=== PATIENT | male | born 1995 | race African-American/Black ===

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

== ENCOUNTER 2017-05-09 18:14 | Emergency (ER) | payer OTHER ==
[2017-05-09 18:26] VITALS: BP 125/51
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
[2017-05-09] MEDS ORDERED: AZITHROMYCIN 250 MG TABLET PO ONE (20:22)
[2017-05-09] MEDS ORDERED: CEFTRIAXONE INJ 250 MG VIAL IM ONE (20:22)
[2017-05-09] MEDS ORDERED: LIDOCAINE 1% INJ-PF (10 MG/ML) 30 ML SDV INFIL ONE (20:22)
== END 2017-05-09 20:51 | disposition home or self-care (01) ==
LOC: ER 18:14
DX: R36.9 Urethral discharge, unspecified (principal); F17.210 Nicotine dependence, cigarettes, uncomplicated
CPT/HCPCS: 99283; 96372; 87491; 87591; J3490; J0696

== ENCOUNTER 2017-05-13 15:39 | Emergency (ER) | payer OTHER ==
[2017-05-13] MEDS ORDERED: ACETAMINOPHEN 325 MG TABLET PO ONE (15:53)
--- NOTE | 2017-05-13 15:55 | ER Document Report ---
ED Medical Screen (RME) - General Chief Complaint: Abdominal Pain Stated Complaint: LOWER ABDOMEN PAIN Time Seen by Provider: 05/13/17 15:47 Notes: This 22-year-old male patient comes emergency room complaining of left groin pain and swelling for the past 5 days. He was seen here on 05/09/2017 with complaint of greenish yellow penile discharge. Testing for GC and chlamydia was negative. He did receive Rocephin and Zithromax. He noted later that day after that visit, the painful swelling to the left groin. He denies any injury, any cuts or scratches boils infected hair follicles etc. on the left lower extremity. He is running a fever today of 102.2 Brief exam shows this to be an enlarged tender left inguinal lymph node. I have greeted and performed a rapid initial assessment of this patient. A comprehensive ED assessment and evaluation of the patient, analysis of test results and completion of the medical decision making process will be conducted by additional ED providers. TRAVEL OUTSIDE OF THE [place] IN LAST 30 DAYS: No - Related Data Allergies/Adverse Reactions: No Known Allergies Allergy (Verified 05/13/17 15:45) Past Medical History Renal/ Medical History: Denies: Hx Peritoneal Dialysis Past Surgical History: Reports: Hx Oral Surgery Physical Exam - Vital signs Vitals: Temp Pulse Resp BP Pulse Ox 102.2 F H 98 18 154/72 H 100 05/13/17 15:43 05/13/17 15:43 05/13/17 15:43 05/13/17 15:43 05/13/17 15:43 Course - Vital Signs Vital signs: Temp Pulse Resp BP Pulse Ox 102.2 F H 98 18 154/72 H 100 05/13/17 15:43 05/13/17 15:43 05/13/17 15:43 05/13/17 15:43 05/13/17 15:43
[2017-05-13 16:20] LABS: ABSOLUTE EOSINOPHILS # (AUTO) 0.1 10^3/uL (0.0-0.6); ABSOLUTE LYMPHOCYTES (AUTO) 0.9 10^3/uL (0.5-4.7); ABSOLUTE MONOCYTES (AUTO) 0.8 10^3/uL (0.1-1.4); ABSOLUTE NEUT (AUTO) 3.8 10^3/uL (1.7-8.2); BASOPHILS % (AUTO) 0.3 % (0-2); EOSINOPHILS % (AUTO) 1.2 % (0-6); HEMATOCRIT 44.5 % (37.9-51.0); HEMOGLOBIN 15.5 g/dL (13.5-17.0); LYMPHOCYTES % (AUTO) 15.8 % (13-45); MEAN CORPUSCULAR HEMOGLOBIN 28.7 pg (27.0-33.4); MEAN CORPUSCULAR HGB CONC 34.8 g/dL (32.0-36.0); MEAN CORPUSCULAR VOLUME 83 fl (80-97); MONOCYTES % (AUTO) 14.6 % (3-13); RED CELL DISTRIBUTION WIDTH 12.6 % (11.5-14.0); SEGMENTED NEUTROPHILS % (AUTO) 68.1 % (42-78); WHITE BLOOD COUNT 5.6 10^3/uL (4.0-10.5)
--- NOTE | 2017-05-13 16:22 | ER Document Report ---
ED GI/ - General Chief Complaint: Abdominal Pain Stated Complaint: LOWER ABDOMEN PAIN Time Seen by Provider: 05/13/17 15:47 Notes: The patient is a 22-year-old male who presents with few days of left groin swelling. He was seen in the ER earlier this week for penile discharge and was treated with azithromycin and Rocephin, but his gonorrhea and chlamydia results were negative. Patient is now also having a fever. He denies penile discharge , testicular pain, concern for STDs, rash, nausea, vomiting, abdominal pain, sore throat, dysuria, hematuria or flank pain. TRAVEL OUTSIDE OF THE [place] IN LAST 30 DAYS: No - Related Data Allergies/Adverse Reactions: No Known Allergies Allergy (Verified 05/13/17 15:45) Past Medical History - General Information source: Patient - Social History Smoking Status: Current Every Day Smoker Chew tobacco use (# tins/day): No Frequency of alcohol use: None Drug Abuse: None Family History: None Renal/ Medical History: Denies: Hx Peritoneal Dialysis Past Surgical History: Reports: Hx Oral Surgery Review of Systems - Review of Systems Notes: REVIEW OF SYSTEMS: CONSTITUTIONAL: +fevers, -chills EENT: -eye pain, -difficulty swallowing, -nasal congestion CARDIOVASCULAR:-chest pain, -syncope. RESPIRATORY: -cough, -SOB GASTROINTESTINAL: -abdominal pain, - nausea, -vomiting, -diarrhea GENITOURINARY: -dysuria, -hematuria MUSCULOSKELETAL: -back pain, -neck pain SKIN: -rash or skin lesions. HEMATOLOGIC: -easy bruising or bleeding. LYMPHATIC: +left inguinal lymph node NEUROLOGICAL: -altered mental status or loss of consciousness, -headache, - neurologic symptoms PSYCHIATRIC: -anxiety, -depression. ALL OTHER SYSTEMS REVIEWED AND NEGATIVE. Physical Exam - Vital signs Vitals: Temp Pulse Resp BP Pulse Ox 102.2 F H 98 18 154/72 H 100 05/13/17 15:43 05/13/17 15:43 05/13/17 15:43 05/13/17 15:43 05/13/17 15:43 - Notes Notes: PHYSICAL EXAMINATION: GENERAL: Well-appearing, well-nourished and in no acute distress. HEAD: Atraumatic, normocephalic. EYES: Pupils equal round and reactive to light, extraocular movements intact, sclera anicteric, conjunctiva are normal. ENT: nares patent, oropharynx clear without exudates. Moist mucous membranes. NECK: Normal range of motion, supple without lymphadenopathy LUNGS: Breath sounds clear to auscultation bilaterally and equal. No wheezes rales or rhonchi. HEART: Regular rate and rhythm without murmurs ABDOMEN/: Soft, nontender, normoactive bowel sounds. No guarding, no rebound. 1 cm tender single lymph node in left inguinal region. No hernia noted. Normal penis and testicles. EXTREMITIES: Normal range of motion, no pitting or edema. No cyanosis. No left leg rash or injury. NEUROLOGICAL: Cranial nerves grossly intact. Normal speech, normal gait. Normal sensory and motor exams. PSYCH: Normal mood, normal affect. SKIN: Warm, Dry, normal turgor, no rashes or lesions noted. Course - Re-evaluation Re-evalutation: Patient appears very well. He has a single left inguinal lymph node and a fever. No concern for STDs and does not appear to be LGV at this time. His white count is normal the rest of blood work is normal. His gonorrhea and chlamydia is negative from earlier this week. Will discharge patient home with return precautions. - Vital Signs Vital signs: Temp Pulse Resp BP Pulse Ox 102.2 F H 98 18 154/72 H 100 05/13/17 15:43 05/13/17 15:43 05/13/17 15:43 05/13/17 15:43 05/13/17 15:43 - Laboratory Result Diagrams: 05/13/17 16:00 05/13/17 16:00 Laboratory results interpreted by me: 05/13/17 05/13/17 16:00 17:17 Monocytes % 14.6 H Urine Urobilinogen 2.0 H Urine Ascorbic Acid 40 H Discharge - Discharge Clinical Impression: Lymphadenopathy Fever Qualifiers: Fever type: unspecified Qualified Code(s): R50.9 - Fever, unspecified Condition: Stable Disposition: HOME, SELF-CARE Additional Instructions: Lymphadenopathy You have enlargement of lymph glands, called lymphadenopathy. Lymph glands filter tissue fluids. They help to fight infection. Most of the time, enlarged lymph glands are not serious. Lymph glands may react to a viral or bacterial infection by becoming swollen and painful. When the infection goes away, the glands shrink. Sometimes a lymph gland will remain enlarged for a long time after an infection. Occasionally, a lymph gland may be overwhelmed by infection and form an abscess. If an enlarged lymph gland has signs that are suspicious for tumor, the doctor will recommend a biopsy. A suspicious gland usually is NOT painful, grows very slowly, and is rock-hard to touch. See the doctor or return if there is increasing swelling and redness, high fever, difficulty breathing, or any other change for the worse. Forms: Elevated Blood Pressure
[2017-05-13 16:37] LABS: ALANINE AMINOTRANSFERASE 47 U/L (21-72); ALBUMIN 4.7 g/dL (3.5-5.0); ALKALINE PHOSPHATASE 79 U/L (38-126); ANION GAP 13 (5-19); ASPARTATE AMINO TRANSFERASE 28 U/L (17-59); BILIRUBIN,DIRECT 0.4 mg/dL (0.0-0.4); BILIRUBIN,TOTAL 0.7 mg/dL (0.2-1.3); BLOOD UREA NITROGEN 16 mg/dL (7-20); CALCIUM 9.8 mg/dL (8.4-10.2); CARBON DIOXIDE 25 mmol/L (22-30); CHLORIDE 106 mmol/L (98-107); CREATININE RESULT 1.18 mg/dL (0.52-1.25); GLUCOSE 80 mg/dL (75-110); POTASSIUM 4.6 mmol/L (3.6-5.0); SODIUM 144.2 mmol/L (137-145); TOTAL PROTEIN 7.9 g/dL (6.3-8.2)
[2017-05-13 17:29] LABS: APPEARANCE,URINE CLEAR; BILIRUBIN,URINE NEGATIVE (NEGATIVE); GLUCOSE, URINE NEGATIVE (NEGATIVE); KETONES,URINE NEGATIVE (NEGATIVE); LEUKOCYTE ESTERASE,URINE NEGATIVE (NEGATIVE); NITRITE,URINE NEGATIVE (NEGATIVE); PROTEIN,URINE NEGATIVE (NEGATIVE); URINE SPECIFIC GRAVITY 1.029
[2017-05-13 18:28] VITALS: BP 122/53
== END 2017-05-13 18:28 | disposition home or self-care (01) ==
LOC: ER 15:39
DX: R59.1 Generalized enlarged lymph nodes (principal); R50.9 Fever, unspecified; R10.9 Unspecified abdominal pain; R10.30 Lower abdominal pain, unspecified; F17.200 Nicotine dependence, unspecified, uncomplicated
CPT/HCPCS: 36415; 80053; 81001; 85025; 87040; 99284

== ENCOUNTER 2019-09-24 18:00 | Emergency (ER) | payer OTHER ==
[2019-09-24] MEDS ORDERED: NORMAL SALINE 1000 ML 1,000 ML IV ONE (19:28)
[2019-09-24] MEDS ORDERED: DEXAMETHASONE SOD PHOS INJ 10 MG/1 ML VIAL IV ONE (19:29)
[2019-09-24] MEDS ORDERED: KETOROLAC TROMETHAMINE INJ/PF 30 MG/1 ML SDV IV ONE (19:29)
[2019-09-24] MEDS ORDERED: CLINDAMYCIN 900 MG/D5W RTU 900 MG/50 ML RTUPB IV SCH ×2 (19:30→20:30)
--- NOTE | 2019-09-24 19:32 | ER Document Report ---
ED Medical Screen (RME) - General Chief Complaint: Sore Throat Stated Complaint: SORE THROAT Time Seen by Provider: 09/24/19 19:22 Primary Care Provider: BIBI HASSAN DO [Primary Care Provider] - Follow up as needed Notes: HPI: 24-year-old male presenting to the emergency department for evaluation of 5 days of progressively worsening left-sided throat pain. Subjective fevers. Increasing difficulty with swallowing. Pain is only on the left side. I have greeted and performed a rapid initial assessment of this patient. A comprehensive ED assessment and evaluation of the patient, analysis of test results and completion of the medical decision making process will be conducted by additional ED providers PHYSICAL EXAMINATION: GENERAL: Well-appearing, well-nourished and in moderate acute distress. HEAD: Atraumatic, normocephalic. EYES: sclera anicteric, conjunctiva are normal. ENT: Moist mucous membranes. Moderate left soft palate edema is noted NECK: Normal range of motion, positive left anterior cervical adenopathy LUNGS: Normal work of breathing, clear to auscultation HEART: 2+ radial pulses bilaterally, regular rate and rhythm ABD: limited by positioning for exam in triage. EXTREMITIES: no pitting or edema. No cyanosis. NEUROLOGICAL: No focal neurological deficits. Moves all extremities spontaneously and on command. PSYCH: Normal mood, normal affect. SKIN: Warm, Dry, normal turgor, no rashes or lesions noted. TRAVEL OUTSIDE OF THE [place] IN LAST 30 DAYS: No - Related Data Allergies/Adverse Reactions: No Known Allergies Allergy (Verified 05/13/17 15:45) Past Medical History Renal/ Medical History: Denies: Hx Peritoneal Dialysis Past Surgical History: Reports: Hx Oral Surgery Physical Exam - Vital signs Vitals: Temp Pulse Resp BP Pulse Ox 98.8 F 80 18 139/74 H 100 09/24/19 18:03 09/24/19 18:03 09/24/19 18:03 09/24/19 18:03 09/24/19 18:03 Course - Vital Signs Vital signs: Temp Pulse Resp BP Pulse Ox 98.8 F 80 18 139/74 H 100 09/24/19 18:03 09/24/19 18:03 09/24/19 18:03 09/24/19 18:03 09/24/19 18:03 Doctor's Discharge - Discharge Referrals: BIBI HASSAN, [Primary Care Provider] - Follow up as needed
[2019-09-24 20:42] LABS: ABSOLUTE EOSINOPHILS # (AUTO) 0.4 10^3/uL (0.0-0.6); ABSOLUTE LYMPHOCYTES (AUTO) 2.3 10^3/uL (0.5-4.7); ABSOLUTE MONOCYTES (AUTO) 1.7 10^3/uL (0.1-1.4); ABSOLUTE NEUT (AUTO) 9.1 10^3/uL (1.7-8.2); BASOPHILS % (AUTO) 0.2 % (0-2); EOSINOPHILS % (AUTO) 2.7 % (0-6); HEMATOCRIT 45.2 % (37.9-51.0); HEMOGLOBIN 15.5 g/dL (13.5-17.0); LYMPHOCYTES % (AUTO) 16.7 % (13-45); MEAN CORPUSCULAR HEMOGLOBIN 28.3 pg (27.0-33.4); MEAN CORPUSCULAR HGB CONC 34.4 g/dL (32.0-36.0); MEAN CORPUSCULAR VOLUME 83 fl (80-97); MONOCYTES % (AUTO) 12.6 % (3-13); PLATELET COUNT 254 10^3/uL (150-450); RED BLOOD COUNT 5.48 10^6/uL (4.35-5.55); RED CELL DISTRIBUTION WIDTH 12.8 % (11.5-14.0); SEGMENTED NEUTROPHILS % (AUTO) 67.8 % (42-78); TOTAL CELLS COUNTED % (AUTO) 100 %; WHITE BLOOD COUNT 13.5 10^3/uL (4.0-10.5)
[2019-09-24 21:10] LABS: ALBUMIN 4.6 g/dL (3.5-5.0); ALKALINE PHOSPHATASE 108 U/L (38-126); ANION GAP 12 (5-19); ASPARTATE AMINO TRANSFERASE 28 U/L (17-59); BILIRUBIN,DIRECT 0.3 mg/dL (0.0-0.4); BILIRUBIN,TOTAL 0.9 mg/dL (0.2-1.3); BLOOD UREA NITROGEN 15 mg/dL (7-20); CALCIUM 9.6 mg/dL (8.4-10.2); CARBON DIOXIDE 28 mmol/L (22-30); CHLORIDE 99 mmol/L (98-107); GLUCOSE 91 mg/dL (75-110); POTASSIUM 4.3 mmol/L (3.6-5.0); TOTAL PROTEIN 8.2 g/dL (6.3-8.2)
--- NOTE | 2019-09-24 21:36 | RADIOLOGY REPORT (SQ) ---
EXAM DESCRIPTION: Contrast-enhanced CT scan of the neck. CLINICAL HISTORY: 24 years Male left peritonsillar abscess TECHNIQUE: Soft tissue protocol CT of the neck using intravenous contrast.. All CT scans at this facility use dose modulation, iterative reconstruction, and/or weight based dosing when appropriate to reduce radiation dose to as low as reasonably achievable. COMPARISON: None. FINDINGS: Sinuses: Visualized paranasal sinuses and mastoid air cells are clear. Soft tissues: Soft tissues of the face and neck are unremarkable. Salivary glands: Within normal limits. Pharynx: At the pharynx there is airways narrowing related to diffuse tonsillar enlargement and swelling. This includes the uvula and soft palate. There is a very subtle, ill-defined area of decreased density in the left palatine 19 tonsils which may represent early abscess formation. This measures approximately 9 mm and is not well defined. No extension into the retropharyngeal space. The larynx and subglottic airway is unremarkable. The epiglottis is normal. Nodes: Cervical lymphadenopathy is noted. Submental lymph nodes measure 15 mm. A lymph node at the angle of the mandible on the left measures 3.5 cm. On the right lymph nodes measure up to 1.5 cm. There is no suppurative nodes. Bones: Osseous structures are unremarkable. The spine appears normal. Facial bones are intact and the TMJ joints are appropriately positioned. Vascular: Visualized portion of the thoracic aorta and arch is unremarkable. No evidence of dissection or vascular occlusions. Venous structures are unremarkable. Thyroid: Within normal limits. Lung apices are clear. Visualized portion of the enhanced intracranial contents are unremarkable. IMPRESSION: 1. Narrowing of the airway at the level of the pharynx related to diffuse enlargement and edema of the tonsillar tissue. 2. Subtle ill-defined low density area in the left tonsillar pillar suggesting early abscess formation. This area measures approximately 9 mm. 3. Cervical lymphadenopathy left greater than right. The lymph nodes are not suppurative.
--- NOTE | 2019-09-24 23:15 | ER Document Report ---
ED General - General Chief Complaint: Sore Throat Stated Complaint: SORE THROAT Time Seen by Provider: 09/24/19 19:22 Primary Care Provider: BIBI HASSAN DO [NO LOCAL MD] - Follow up as needed Mode of Arrival: Ambulatory Information source: Patient, Relative Notes: Patient is a 24-year-old male presenting to the emergency department chief complaint of sore throat. Patient states it started last Sunday and progressively is worsened. Patient denies any trauma to his throat. Patient does report mild fever and difficulty with swallowing. Patient denies any recent travel. Patient denies any obvious sick contacts. Patient does report positive tobacco abuse. TRAVEL OUTSIDE OF THE [place] IN LAST 30 DAYS: No - HPI Onset: Last week Onset/Duration: Gradual, Worse Quality of pain: Fullness, Pressure, Throbbing Severity: Moderate Pain Level: 3 Associated symptoms: Fever, Sore throat Exacerbated by: Denies Relieved by: Denies Similar symptoms previously: No Recently seen / treated by doctor: No - Related Data Allergies/Adverse Reactions: No Known Allergies Allergy (Verified 05/13/17 15:45) Past Medical History - General Information source: Patient, Relative - Social History Smoking Status: Current Every Day Smoker Cigarette use (# per day): Yes Smoking Education Provided: Yes Frequency of alcohol use: None Drug Abuse: None Lives with: Spouse/Significant other Family History: None Patient has suicidal ideation: No Patient has homicidal ideation: No - Medical History Medical History: Negative Renal/ Medical History: Denies: Hx Peritoneal Dialysis Past Surgical History: Reports: Hx Oral Surgery Review of Systems - Review of Systems Constitutional: No symptoms reported EENT: See HPI Cardiovascular: No symptoms reported Respiratory: No symptoms reported Gastrointestinal: No symptoms reported Genitourinary: No symptoms reported Male Genitourinary: No symptoms reported Musculoskeletal: No symptoms reported Skin: No symptoms reported Hematologic/Lymphatic: No symptoms reported Neurological/Psychological: No symptoms reported Physical Exam - Vital signs Vitals: Temp Pulse Resp BP Pulse Ox 98.8 F 80 18 139/74 H 100 09/24/19 18:03 09/24/19 18:03 09/24/19 18:03 09/24/19 18:03 09/24/19 18:03 - Notes Notes: PHYSICAL EXAMINATION: GENERAL: Ill appearing well-nourished and in mild distress. HEAD: Atraumatic, normocephalic. EYES: Pupils equal round and reactive to light, extraocular movements intact, sclera anicteric, conjunctiva are normal. ENT: nares patent, oropharynx uvula is midline however approximately twice normal size, bilateral tonsillar swelling and erythema exudate to the left tonsillar pillar. NECK: Normal range of motion, positive lymphadenopathy left greater than right, no appreciable JVD LUNGS: Lungs clear to auscultation bilaterally and equal. No wheezes rales or rhonchi. HEART: Regular rate and rhythm without murmurs ABDOMEN: Soft, nontender, normal bowel sounds. No guarding, no rebound. No masses appreciated. EXTREMITIES: Active full range of motion, no pitting or edema. No cyanosis. 2+ pulses x4 NEUROLOGICAL: No focal neurological deficits. Moves all extremities spontaneously and on command. SKIN: Warm, Dry, and intact. Normal turgor, no rashes or lesions noted. Course - Re-evaluation Re-evalutation: 09/25/19 00:06 I have reviewed the patient's laboratory and radiologic results. Patient did receive IV Decadron and IV clindamycin in the emergency department. Patient states that his throat feels somewhat improved he has had a p.o. challenge without difficulty. I did relate to the patient the small abscess that is present on the left. Patient is informed to follow-up tomorrow morning with his primary care provider or return immediately to the emergency department for worsening symptoms. Patient is given a prescription for clindamycin as well as Medrol Dosepak. Patient is stable at time of discharge. - Vital Signs Vital signs: Temp Pulse Resp BP Pulse Ox 99 F 75 18 138/68 H 98 09/24/19 23:20 09/24/19 23:20 09/24/19 23:20 09/24/19 23:20 09/24/19 23:20 - Laboratory Result Diagrams: 09/24/19 20:27 09/24/19 20:27 Laboratory results interpreted by me: 09/24/19 20:27 WBC 13.5 H Absolute Neuts (auto) 9.1 H Absolute Monos (auto) 1.7 H - Diagnostic Test Radiology reviewed: Reports reviewed Discharge - Discharge Clinical Impression: Tonsillitis, Lymphadenopathy Condition: Stable Disposition: HOME, SELF-CARE Instructions: Strep Throat ([facility]), Tonsillitis ([facility]) Additional Instructions: Please follow-up tomorrow with the base physician. Please fill your prescriptions tomorrow unless they request different antibiotics. Take as prescribed. Return immediately to the emergency department for worsening symptoms to include fever not responding to Tylenol or Motrin or increased swelling of your posterior throat and/or worsening difficulty with swallowing. Prescriptions: Clindamycin HCl [Cleocin 150 mg Capsule] 150 mg PO Q6 #40 capsule Methylprednisolone [Medrol Dosepack (4 mg/Tab) 21 Tab/Dosepak] 4 mg PO ASDIR PRN #21 [id number] PRN Reason: Referrals: BIBI HASSAN, [NO LOCAL MD] - Follow up as needed
[2019-09-24 23:21] VITALS: BP 138/68
== END 2019-09-24 23:29 | disposition home or self-care (01) ==
LOC: ER 18:00
DX: J03.90 Acute tonsillitis, unspecified (principal); R59.1 Generalized enlarged lymph nodes; R50.9 Fever, unspecified; F17.210 Nicotine dependence, cigarettes, uncomplicated
CPT/HCPCS: 99283; 96375; 96365; 36415; 85025; 80053; 70491; J3490; J1885; J7030; J1100